=== PATIENT | female | born 2000 ===

== ENCOUNTER 2024-11-21 06:25 | Day surgery (SDC) | payer OTHER, SELFPAY ==
[2024-11-21] VITALS (11 sets, daily range): BP systolic 106–126; BP diastolic 68–86; BMI 17.2
[2024-11-21] MEDS: NORMOSOL-R/PLASMALYTE-A 1000 IV (07:38)
[2024-11-21] MEDS: SUBLIMAZE 25 MCG IV (10:16)
[2024-11-21] MEDS: ROXICODONE ORAL SOLUTION 5 MG PO (11:21)
== END 2024-11-21 11:25 | disposition home or self-care (01) ==
LOC: SDS 06:25
PROVIDERS: ATTENDING PHYSICIAN Otolaryngology
DX: J35.01 Chronic tonsillitis (principal)
CPT/HCPCS: 42826; 88304